=== PATIENT | male | born 1990 | race African-American/Black ===

== ENCOUNTER 2019-08-21 12:40 | Emergency (ER) | payer OTHER ==
[2019-08-21 12:52] VITALS: BP 137/85
[2019-08-21] MEDS ORDERED: ACETAMINOPHEN 325 MG TABLET PO ONE (13:14)
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
== END 2019-08-21 14:40 | disposition home or self-care (01) ==
LOC: ER 12:40
DX: M54.2 Cervicalgia (principal); M25.512 Pain in left shoulder; F17.200 Nicotine dependence, unspecified, uncomplicated; V43.52XA Car driver injured in collision with other type car in traffic accident, initial encounter
CPT/HCPCS: 72125; 99284

== ENCOUNTER → 2019-10-06 | Outpatient (CLI) | payer BC | LOC: RDC 14:07 | PROVIDERS: ATTEND Nurse Practitioner Family | DX: Z03.818 Encounter for observation for suspected exposure to other biological agents ruled out (principal) | CPT/HCPCS: 87635; C9803 ==